=== PATIENT | male | born 1955 | race Caucasian/White ===

== ENCOUNTER 2017-07-31 13:34 | Emergency (ER) | payer MEDICARE ==
--- NOTE | 2017-07-31 14:53 | CR ---
Pelvis right hip There is a fracture of the greater trochanter of the hip. The right-sided pelvic structures are intac t. The femoral neck is intact. Symmetric degenerative joint space loss of the hips is demonstrated. Impression: 1. Fracture of the greater trochanter.
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
[2017-07-31] MEDS: Acetaminophen/oxyCODONE 325-5 MG Tab PO STA (15:05)
== END 2017-07-31 16:05 | disposition home or self-care (01) ==
LOC: JP.ED 13:34
DX: S72.111A Displaced fracture of greater trochanter of right femur, initial encounter for closed fracture (principal); Z88.8 Allergy status to other drugs, medicaments and biological substances; Z87.891 Personal history of nicotine dependence; V98.8XXA Other specified transport accidents, initial encounter
CPT/HCPCS: 73502; 99283; 99284; A9270

== ENCOUNTER 2017-08-24 03:22 | Inpatient (IN) | payer MEDICARE ==
[2017-08-24] MEDS ORDERED: HYDROmorphone 1 MG/ML Syringe IM ONE (03:49)
--- NOTE | 2017-08-24 03:52 | EDM.PDOC ---
ED HPI GENERAL MEDICAL PROBLEM - General Chief Complaint: General Stated Complaint: MEDICAL VIA [place]TH - FALL Time Seen by Provider: 08/24/17 03:44 Source of Information: Reports: Patient, RN Notes Reviewed History Limitations: Reports: No Limitations - History of Present Illness INITIAL COMMENTS - FREE TEXT/NARRATIVE: 61-year-old gentleman presents to the emergency department today following a fall at home, he fell in his bathroom landed predominantly on the left side of his chest and now is experiencing pain does have a history of multiple bone fractures, he states it hurts to take a breath Left Chest Pain Score (Numeric/FACES): 8 - Related Data Allergies Allergy/AdvReac Type Severity Reaction Status Date / Time acetaminophen [From Percocet] Allergy Swelling Verified 08/24/17 03:30 orphenadrine Allergy Swelling Verified 08/24/17 03:29 oxycodone [From Percocet] Allergy Swelling Verified 08/24/17 03:30 propoxyphene Allergy Swelling Verified 08/24/17 03:29 Home Meds: Home Meds Amitriptyline [Elavil] 1 tab PO BEDTIME 07/31/17 [History] Fish Oil/DHA/EPA [Fish Oil 1,200 MG] 1 tab PO DAILY 07/31/17 [History] Gabapentin [Neurontin] 1 tab PO TID 07/31/17 [History] Methadone 3 tab PO TID 07/31/17 [History] Multivitamin [Multivitamins] 1 tab PO DAILY 07/31/17 [History] Past Medical History HEENT History: Reports: Impaired Vision Musculoskeletal History: Reports: Arthritis, Fracture, Neck Pain, Chronic, Other (See Below) Other Musculoskeletal History: degenerative disc disease. bilateral upper extremity radiculopathy.Recent fx l hip. Neurological History: Reports: Other (See Below) Other Neuro History: cervical spondylitic myelopathy. - Infectious Disease History Infectious Disease History: Reports: Chicken Pox - Past Surgical History HEENT Surgical History: Reports: Other (See Below) Other HEENT Surgeries/Procedures: deviated septum Neurological Surgical History: Reports: C-Spine, Discectomy, Other (See Below) Other Neurological Surgeries/Procedures: c-spine fusion, Musculoskeletal Surgical History: Reports: Amputation, Other (See Below) Other Musculoskeletal Surgeries/Procedures:: bilateral thumb surgery, thumb amputation right. Social & Family History - Tobacco Use Smoking Status *Q: Former Smoker Years of Tobacco use: 37 Packs/Tins Daily: 1 Used Tobacco, but Quit: Yes Month/Year Tobacco Last Used: 2005 Second Hand Smoke Exposure: No - Caffeine Use Caffeine Use: Reports: Coffee - Alcohol Use Days Per Week of Alcohol Use: 4 Number of Drinks Per Day: 3 Total Drinks Per Week: 12 - Recreational Drug Use Recreational Drug Use: Yes Recreational Drug Type: Reports: Marijuana/Hashish Recreational Drug Use Frequency: Rarely ED ROS GENERAL - Review of Systems Review Of Systems: See Below Constitutional: Reports: No Symptoms Respiratory: Reports: Shortness of Breath Cardiovascular: Reports: Chest Pain Musculoskeletal: Reports: Back Pain Skin: Reports: No Symptoms ED EXAM, GENERAL - Physical Exam Exam: See Below Exam Limited By: No Limitations General Appearance: Alert, Mild Distress Neck: Normal Inspection, Supple, Non-Tender, Full Range of Motion Respiratory/Chest: No Respiratory Distress, Lungs Clear, Normal Breath Sounds, No Accessory Muscle Use, Other (Tender to palpation along left side posterior aspect of the chest) Cardiovascular: Regular Rate, Rhythm, No Murmur GI/Abdominal: Soft, Non-Tender Extremities: Normal Inspection, No Pedal Edema Course - Vital Signs Last Recorded V/S: Last Vital Signs Temp 97.7 F 08/24/17 05:06 Pulse 116 H 08/24/17 05:06 Resp 14 08/24/17 05:06 BP 135/68 08/24/17 05:06 Pulse Ox 97 08/24/17 05:06 - Orders/Labs/Meds Orders: Active Orders 24 hr Category Date Time Status Chest wo Cont [CT] Stat Exams 08/24/17 03:49 Taken COMPREHENSIVE METABOLIC PN,CMP [CHEM] Stat Lab 08/24/17 05:34 Received Labs: Laboratory Tests 08/24/17 08/24/17 Range/Units 05:27 05:34 WBC 14.3 H (4.5-11.0) K/uL RBC 3.97 L (4.30-5.90) M/uL Hgb 11.4 L (12.0-15.0) g/dL Hct 35.2 L (40.0-54.0) % MCV 89 (80-98) fL MCH 29 (27-31) pg MCHC 32 (32-36) % Plt Count 469 H (150-400) K/uL Neut % (Auto) 84 H (36-66) % Lymph % (Auto) 11 L (24-44) % [place] % (Auto) 5 (2-6) % Eos % (Auto) 0 L (2-4) % Baso % (Auto) 0 (0-1) % Urine Color Yellow Urine Appearance Clear Urine pH 6.0 (4.5-8.0) Ur Specific [place] 1.015 (1.008-1.030) Urine Protein Negative (NEGATIVE) mg/dL Urine Glucose (UA) Normal (NEGATIVE) mg/dL Urine Ketones Negative (NEGATIVE) mg/dL Urine Occult Blood Negative (NEGATIVE) Urine Nitrite Negative (NEGAITVE) Urine Bilirubin Negative (NEGATIVE) Urine Urobilinogen Normal (NORMAL) mg/dL Ur Leukocyte Esterase Negative (NEGATIVE) Urine RBC 0-5 (0-5) Urine WBC 0-5 (0-5) Ur Epithelial Cells Few Amorphous Sediment Not seen Urine Bacteria Few Urine Mucus Not seen Meds: Medications Discontinued Medications Generic Name Dose Route Start Last Admin Trade Name Freq PRN Reason Stop Dose Admin Hydromorphone HCl 1 mg 08/24/17 03:49 Dilaudid IM 08/24/17 03:50 ONETIME ONE Hydromorphone HCl 1 mg 08/24/17 05:02 08/24/17 05:12 Dilaudid IVPUSH 08/24/17 05:03 1 mg ONETIME ONE Administration Departure - Departure Time of Disposition: 06:01 Disposition: Admitted As Inpatient 64 Condition: Fair Clinical Impression: Pneumothorax, left, Hemothorax on left Multiple rib fractures Qualifiers: Encounter type: initial encounter Fracture type: closed Laterality: left Qualified Code(s): S22.42XA - Multiple fractures of ribs, left side, initial encounter for closed fracture - Discharge Information Referrals: PCP,None [Primary Care Provider] - Forms: ED Department Discharge - My Orders Last 24 Hours: My Active Orders 08/24/17 03:49 Chest wo Cont [CT] Stat 08/24/17 05:34 COMPREHENSIVE METABOLIC PN,CMP [CHEM] Stat - Assessment/Plan Last 24 Hours: My Active Orders 08/24/17 03:49 Chest wo Cont [CT] Stat 08/24/17 05:34 COMPREHENSIVE METABOLIC PN,CMP [CHEM] Stat Plan: Assessment Acuity = acute Site and laterality = rib fractures 8 and 9 on the left side with moderate size pneumothorax and small hemothorax Etiology = secondary to trauma Manifestations = pain Location of injury = Home Lab values = WBC elevated at 14.3 consistent leukocytosis, hemoglobin low 11.4 consistent with normochromic anemia, urinalysis unremarkable, CT scan describes the rib fractures and pneumothorax above, CMP is pending Plan Called and discussed case with Dr. Naik he agreed to come and evaluate the patient emergency department plan for surgical intervention and placement of chest tube for pneumothorax This note was dictated using [employer] voice recognition software please call with any questions on syntax or meg.
[2017-08-24] MEDS ORDERED: HYDROmorphone 1 MG/ML Syringe IVPUSH ONE (05:02)
[2017-08-24] MEDS ORDERED: Bupivacaine 0.5%/EPINEPHrine 1:200,000 50 ML MDV ONE (06:59)
[2017-08-24] MEDS ORDERED: Propofol 200 MG/20 ML SDV ONE (07:06)
[2017-08-24] MEDS ORDERED: Midazolam 1 MG/ML 2 ML SDV ONE (07:06)
[2017-08-24] MEDS ORDERED: fentaNYL 100 MCG/2 ML SDV ONE (07:06)
[2017-08-24] MEDS ORDERED: Bupivacaine 0.5% 30 ML SDV ONE (07:27)
[2017-08-24] MEDS ORDERED: cefOXitin 2 GM Vial ONE (07:36)
[2017-08-24] MEDS ORDERED: diphenhydrAMINE 50 MG/ML SDV IVPUSH PRN (07:45)
[2017-08-24] MEDS ORDERED: hydrOXYzine HCl 100 MG/2 ML SDV IM PRN (07:45)
[2017-08-24] MEDS ORDERED: Promethazine 25 MG/ML SDV IM PRN (07:45)
[2017-08-24] MEDS ORDERED: Ondansetron 4 MG/2 ML SDV IVPUSH PRN (07:45)
[2017-08-24] MEDS ORDERED: Bisacodyl 5 MG Tab PO PRN (07:45)
[2017-08-24] MEDS ORDERED: Zolpidem 5 MG Tab PO PRN (07:45)
[2017-08-24] MEDS: Ketorolac 30 MG/ML SDV IVPUSH SCH ×3 (08:26→20:27)
[2017-08-24] MEDS ORDERED: Morphine 2 MG/ML Syringe IVPUSH PRN (08:48)
[2017-08-24] MEDS ORDERED: FISH OIL PO SCH (09:00)
[2017-08-24] MEDS ORDERED: EPA PO SCH (09:00)
[2017-08-24] MEDS ORDERED: DHA PO SCH (09:00)
[2017-08-24] MEDS ORDERED: Non-Formulary Medication 1 Each (Multivitamin [Multivitamins] 1 TAB) PO SCH (09:00)
[2017-08-24] MEDS: Methadone 10 MG Tab PO SCH ×3 (09:42→20:29)
[2017-08-24] MEDS: Gabapentin 300 MG Cap PO SCH ×3 (09:43→20:29)
[2017-08-24] MEDS: Multivitamins with Iron/Calcium/Folic Acid/Minerals Tab PO SCH (09:43)
[2017-08-24] MEDS: Fish Oil/Omega-3 Fatty Acids 1 Gm Cap PO SCH (09:44)
--- NOTE | 2017-08-24 14:56 | OR ---
DATE OF PROCEDURE: 08/24/2017 PROCEDURE PERFORMED: Left chest tube. PREOPERATIVE DIAGNOSIS: Hemo/pneumothorax, left. POSTOPERATIVE DIAGNOSIS: Hemo/pneumothorax, left. COMPLICATION: None. UNDERCOLLAR BASTER: None. ANESTHESIA: MAC/Local. RISKS: The risks, benefits, alternatives, and limitations including, but not limited to infection, bleeding, requirement for reoperation, lung injury, cardiovascular injury, infection, and other risks not listed here were explained to the patient and he wished to proceed. PROCEDURE IN DETAIL: The patient was placed in the right lateral decubitus position. This chest will be placed in standard fashion around the 4th intercostal space, mid-axillary line superior to nipple. The area of the chest was prepped and draped. A proximal 1-cm incision was made after anesthetizing with lidocaine. A blunt type device was used to enter the chest. A pop was felt and air bailey was heard. The finger sweep confirmed the chest tube placement. A 32-Turkish chest tube was introduced and advanced to approximately 10 cm. Condensation was noted in the tube. This was then stitched in x2 with closure of the wound itself. Dressings were applied, which consisted of Vaseline gauze, 4x4s, and heavy foam tape. The chest tube was tightened with air bubbles noted at the termination of the procedure. The patient tolerated the procedure well. Ace Naik MD /[id number]
[2017-08-24] MEDS: Sodium Chloride 0.9% 1,000 ML IV SCH (16:38)
--- NOTE | 2017-08-24 17:02 | CONS ---
DATE OF SERVICE: 08/24/2017 REFERRING PHYSICIAN: CONSULTING PHYSICIAN: Ace Naik MD REASON FOR CONSULTATION: Evaluation of shortness of breath. HISTORY OF PRESENT ILLNESS: A pleasant 61-year-old male who fell and has now shortness of breath. The emergency room physician is requesting evaluation and management of this issue in conjunction with Surgery. PAST SURGICAL HISTORY: Multiple orthopedic surgery especially in his fingers. No previous chest surgery. PAST MEDICAL HISTORY: The patient states he has none, but does note he is on methadone. SOCIAL HISTORY: He presents alone today. He does not report smoking. REVIEW OF SYSTEMS: GENERAL: No reported concerns. CARDIOVASCULAR: No history of myocardial infarction. RESPIRATORY: No previous history of shortness of breath. GASTROINTESTINAL: No contributory symptoms. GENITOURINARY: No contributory symptoms. The remainder of the review of systems reviewed and is negative. PHYSICAL EXAMINATION: VITAL SIGNS: Stable. HEENT: Pupils are equal. GENERAL: The patient is resting comfortably. NECK: Supple. LUNGS: Poor inspiratory effort bilaterally. CARDIOVASCULAR: Regular rhythm and rate. ABDOMEN: Bowel sounds positive. EXTREMITIES: Full range of motion. SKIN: Some bruising noted. No open wound. IMAGING: I did review a CT scan which shows a pneumothorax, left. ASSESSMENT: Pneumothorax. PLAN: The patient will be taken to the operating room for chest tube placement. It is my opinion that it is the best choice for management of this problem. I did discuss risks, benefits, alternatives, limitations including, but not limited to infection, bleeding, requirement for reoperation, requirement for placement of second chest tube, also discussed that physiologically due to his physiological age, the patient might get a respiratory compromise; therefore, he is instructed to postoperatively have very aggressive incentive spirometry and it was explained to him that it is very important he participates in this. In addition, I did discuss with him Anesthesia's plan for nerve blocks in conjunction with our MAC anesthetic. He understands the risks, benefits, alternatives, and limitations of that. However, please refer to their notes for further details. Ace Naik MD /[id number]
[2017-08-24] MEDS: Amitriptyline 25 MG Tab PO SCH (20:27)
[2017-08-25] MEDS: Sodium Chloride 0.9% 1,000 ML IV SCH (00:37)
[2017-08-25] MEDS: Ketorolac 30 MG/ML SDV IVPUSH SCH (02:17)
[2017-08-25] MEDS: Ibuprofen 600 MG Tab PO SCH ×3 (08:09→18:43)
[2017-08-25] MEDS: Methadone 10 MG Tab PO SCH ×3 (08:10→20:59)
[2017-08-25] MEDS: Fish Oil/Omega-3 Fatty Acids 1 Gm Cap PO SCH (08:10)
[2017-08-25] MEDS: Gabapentin 300 MG Cap PO SCH ×3 (08:10→21:00)
[2017-08-25] MEDS: Multivitamins with Iron/Calcium/Folic Acid/Minerals Tab PO SCH (08:10)
--- NOTE | 2017-08-25 12:19 | PN ---
DATE OF SERVICE: 08/25/2017 SUBJECTIVE: The patient is doing well today. Pain is well controlled. No nausea, vomiting, shortness of breath, or chest pain. OBJECTIVE: VITAL SIGNS: Stable. CARDIOVASCULAR: Regular rhythm and rate. RESPIRATORY: Lungs clear to auscultation bilaterally. IMAGING: X-rays show a stable chest without any evidence of pneumothorax. ASSESSMENT: Status post chest tube placement for pneumothorax. PLAN: This is stable. No bubbling. No concern. Therefore, the plan will be continue chest tube in, probably remove on Saturday. Transferred to the floor from ICU. Ace Naik MD /[id number]
[2017-08-25] MEDS: HYDROmorphone 2 MG Tab PO PRN ×2 (19:08→23:55)
[2017-08-25] MEDS: Amitriptyline 25 MG Tab PO SCH (20:59)
[2017-08-25] MEDS: Docusate Sodium 100 MG Cap PO PRN (23:54)
[2017-08-26] MEDS: Ibuprofen 600 MG Tab PO SCH ×4 (01:16→19:36)
[2017-08-26] MEDS: HYDROmorphone 2 MG Tab PO PRN ×4 (04:36→19:36)
--- NOTE | 2017-08-26 08:46 | CR ---
Portable chest Comparison: Chest CT obtained earlier same day. Fine is: There has been interval placement of a left chest tube. There is reexpansion of the left jeff g with nonvisualization of the pneumothorax. The heart and vascular structures are stable. Impression: 1. Resolution of left pneumothorax following chest tube placement.
--- NOTE | 2017-08-26 08:48 | CR ---
Portable chest Comparison: Previous day. The left chest tube appears advanced further into the chest. There is no visualized pneumothorax. The re is a small left pleural effusion. There is mild subcutaneous air along the left chest wall. There has been development of mild right basilar atelectasis. Impression: 1. Diminished lung volumes. Interval development of small pleural effusion. No evidence of pneumothor ax. 2. Right basilar atelectasis.
--- NOTE | 2017-08-26 08:50 | CR ---
Two-view chest Comparison: Previous day. There is no interval change of the left chest tube. There is no visualized pneumothorax. A small left pleural effusion is unchanged. There continues to be basilar atelectasis on the right. The heart and vascular structures are stable. Impression: 1. Left chest tube without visualized pneumothorax.
[2017-08-26] MEDS: Fish Oil/Omega-3 Fatty Acids 1 Gm Cap PO SCH (09:32)
[2017-08-26] MEDS: Multivitamins with Iron/Calcium/Folic Acid/Minerals Tab PO SCH (09:32)
[2017-08-26] MEDS: Gabapentin 300 MG Cap PO SCH ×3 (09:32→21:43)
[2017-08-26] MEDS: Methadone 10 MG Tab PO SCH ×3 (09:53→21:43)
--- NOTE | 2017-08-26 11:01 | PN ---
DATE OF SERVICE: 08/25/2017 SUBJECTIVE: The patient continues to do well. Pain is well controlled. No nausea, vomiting, shortness of breath, or chest pain. OBJECTIVE: VITAL SIGNS: Stable. CARDIOVASCULAR: Regular rhythm and rate. RESPIRATORY: Lungs are clear to auscultation bilaterally except for crackles on the chest tube site which is appropriate for his condition. ASSESSMENT: Status post chest tube placement. PLAN: Continue chest tube at this time. No concerns with respect to bubbling or air leak. Anticipated discharge approximately on Saturday if water seal works. Ace Naik MD /[id number]
--- NOTE | 2017-08-26 11:05 | PN ---
DATE OF SERVICE: 08/26/2017 SUBJECTIVE: The patient continues to do well today. His pain is well-controlled. No nausea, vomiting, shortness of breath, or chest pain. He is tolerating diet. OBJECTIVE: VITAL SIGNS: Stable. CARDIOVASCULAR: Regular rhythm and rate. RESPIRATORY: Improved auscultation bilaterally. ASSESSMENT: Status post chest tube on the left. PLAN: We will continue to increase his activity. We will place him on water seal in the a.m. Aside from that, continue same diet and pain management plan today. Ace Naik MD /[id number]
[2017-08-26] MEDS: Docusate Sodium 100 MG Cap PO PRN (15:22)
[2017-08-26] MEDS: Amitriptyline 25 MG Tab PO SCH (21:43)
[2017-08-27] MEDS: Ibuprofen 600 MG Tab PO SCH ×3 (03:30→17:46)
--- NOTE | 2017-08-27 09:06 | CR ---
Two-view chest Comparison: Previous day. There is a left chest tube unchanged in position. There is a left pleural effusion without change. Th ere is no visualized pneumothorax. There is volume loss and atelectasis in the right lung base. A sma ll right pleural effusion cannot be excluded. The heart and vascular structures are stable. Impression: 1. Left chest tube without evidence of pneumothorax. 2. Small left pleural effusion. There are few scattered air-fluid levels in the left lower hemithorax . 3. Right basilar atelectasis.
[2017-08-27] MEDS: Fish Oil/Omega-3 Fatty Acids 1 Gm Cap PO SCH (09:07)
[2017-08-27] MEDS: Methadone 10 MG Tab PO SCH ×3 (09:07→20:47)
[2017-08-27] MEDS: Multivitamins with Iron/Calcium/Folic Acid/Minerals Tab PO SCH (09:08)
[2017-08-27] MEDS: Gabapentin 300 MG Cap PO SCH ×3 (09:08→20:48)
[2017-08-27] MEDS: HYDROmorphone 2 MG Tab PO PRN ×3 (09:20→21:35)
--- NOTE | 2017-08-27 11:19 | CR ---
Portable chest Comparison: Earlier same day. Left chest tube is unchanged. There is no visualized pneumothorax. There are markedly diminished lung volumes. There is bibasilar atelectasis. There is a small left effusion. Impression: 1. No evidence of pneumothorax with chest tube placed to waterseal.
--- NOTE | 2017-08-27 18:45 | DISCH ---
DATE OF SERVICE: 08/27/2017 DISCHARGE DIAGNOSIS: Pneumothorax, left. PROCEDURES PERFORMED DURING THIS HOSPITALIZATION: Left chest tube placement. SUMMARY OF HOSPITAL COURSE: This is a pleasant 81-year-old male who underwent an uneventful chest tube placement due to a hemopneumothorax. The patient progressed well through his approximately 72 hours of hospitalization. Prior to discharge, his chest tube was removed. A cursory examination of the x-ray showed no evidence of pneumothorax. Official results are pending. Follow up with Surgery in 7-14 days. ACTIVITY: No lifting greater than 30 pounds x30 days. DISCHARGE MEDICATIONS: Please see MAR, but include Dilaudid for pain. SPECIAL INSTRUCTIONS: The patient was instructed to leave the dressing on for 40 hours and remove. Bacitracin and Band-Aid daily. In addition, he was also instructed to present to the emergency room with any evidence of shortness of breath or any other abnormality. The patient understands these risks and wishes to be discharged.
[2017-08-27] MEDS: Amitriptyline 25 MG Tab PO SCH (20:47)
[2017-08-27] MEDS: Docusate Sodium 100 MG Cap PO PRN (20:48)
--- NOTE | 2017-08-28 08:47 | CR ---
Portable chest Comparison: Earlier same day. Findings: There has been interval removal of the left chest tube. There is no pneumothorax seen. A le ft pleural effusion is unchanged. There are left rib fractures again noted. There is basilar atelecta sis on the right. Markedly diminished lung volumes are demonstrated. Impression: 1. Noncomplicated chest tube removal.
--- NOTE | 2017-08-28 09:28 | PN ---
DATE OF SERVICE: 08/27/2017 SUBJECTIVE: The patient is doing very well today. Pain is well controlled. No nausea, vomiting, shortness of breath, or chest pain. OBJECTIVE: VITAL SIGNS: Stable. CARDIOVASCULAR: Regular rhythm and rate. RESPIRATORY: Lungs clear to auscultation bilaterally. The chest tube is tidaling without difficulty. ASSESSMENT: Status post pneumothorax/chest tube. PLAN: We will remove his chest tube today. The patient was placed in the supine position. The stitch was removed. The patient suspended respirations and Xeroform/4x4/gauze dressings were applied, as the patient firmly suspended respirations, and chest tube was removed. The patient tolerated the procedure well. The patient will be discharged pending x-ray. Please see discharge instructions for further details. Ace Naik MD /[id number]
== END 2017-08-27 22:15 | disposition home or self-care (01) | DRG 200 ==
LOC: JP.ED 03:22 → JP.SDS 06:21 → JP.ICU 07:45 → JP.MS 08-25 13:22
PROVIDERS: ADMIT Surgery; ATTEND Surgery
PROC: 0W9B30Z Drainage of Left Pleural Cavity with Drainage Device, Percutaneous Approach (ICD-10-PCS; principal; 2017-08-24)
PROC: 0WPBX0Z Removal of Drainage Device from Left Pleural Cavity, External Approach (ICD-10-PCS; 2017-08-27)
DX: S27.2XXA Traumatic hemopneumothorax, initial encounter (principal); S22.42XA Multiple fractures of ribs, left side, initial encounter for closed fracture; Z87.891 Personal history of nicotine dependence; W19.XXXA Unspecified fall, initial encounter; Y92.002 Bathroom of unspecified non-institutional (private) residence as the place of occurrence of the external cause; R06.02 Shortness of breath; R07.89 Other chest pain; Z98.1 Arthrodesis status; M19.90 Unspecified osteoarthritis, unspecified site; H54.7 Unspecified visual loss; M54.2 Cervicalgia; G89.29 Other chronic pain; Z88.6 Allergy status to analgesic agent; Z88.5 Allergy status to narcotic agent; Z88.8 Allergy status to other drugs, medicaments and biological substances
CPT/HCPCS: 32556; 36415; 71250; 80053; 81001; 85025; 96374; 99285; J0694; J1170; J2250; J2704; J3010; 71045; 71045-26; 71046; 71046-26; 80048; 85027; 94762; 97162-GP; 97530-GP; 99284; A9270-GY; J1885; J7040

== ENCOUNTER 2017-09-21 19:04 | Emergency (ER) | payer MEDICAID, MEDICARE, OTHER ==
--- NOTE | 2017-09-21 21:38 | EDM.PDOC ---
ED HPI GENERAL MEDICAL PROBLEM - General Chief Complaint: Respiratory Problem Stated Complaint: SOB Time Seen by Provider: 09/21/17 20:56 Source of Information: Reports: Patient History Limitations: Reports: Other (Difficult to understand this patient's speech) - History of Present Illness INITIAL COMMENTS - FREE TEXT/NARRATIVE: This patient was hospitalized approximately a month ago for a collapsed lung after a fall. This required a chest tube. Review of the x-ray shows what appears to be a large pneumothorax on the right. The patient said that he occasionally gets a little bit of pain in the ribs of the left side of his chest. He hasn't fallen anymore and he's not short of breath today occasionally he feels just a little bit short of breath. For some reason he got worried tonight that he might have another collapsed lung. Generalized Pain Score (Numeric/FACES): 5 - Related Data Allergies Allergy/AdvReac Type Severity Reaction Status Date / Time acetaminophen [From Percocet] Allergy Swelling Verified 09/21/17 20:13 orphenadrine Allergy Swelling Verified 09/21/17 20:13 oxycodone [From Percocet] Allergy Swelling Verified 09/21/17 20:13 propoxyphene Allergy Swelling Verified 09/21/17 20:13 Home Meds: Home Meds Amitriptyline [Elavil] 1 tab PO BEDTIME 07/31/17 [History] Fish Oil/DHA/EPA [Fish Oil 1,200 MG] 1 tab PO DAILY 07/31/17 [History] Gabapentin [Neurontin] 300 mg PO TID 07/31/17 [History] Methadone 30 mg PO TID 07/31/17 [History] Multivitamin [Multivitamins] 1 tab PO DAILY 07/31/17 [History] Past Medical History HEENT History: Reports: Impaired Vision Respiratory History: Reports: Other (See Below) Other Respiratory History: Recent chest tube. [facility] 08/27/17 Musculoskeletal History: Reports: Arthritis, Back Pain, Chronic, Fracture, Neck Pain, Chronic, Other (See Below) Other Musculoskeletal History: degenerative disc disease. bilateral upper extremity radiculopathy.Recent fx l hip. scoliosis, kyphosis Neurological History: Reports: Other (See Below) Other Neuro History: cervical spondylitic myelopathy. - Infectious Disease History Infectious Disease History: Reports: Chicken Pox - Past Surgical History HEENT Surgical History: Reports: Other (See Below) Other HEENT Surgeries/Procedures: deviated septum Neurological Surgical History: Reports: C-Spine, Discectomy, Other (See Below) Other Neurological Surgeries/Procedures: c-spine fusion, Musculoskeletal Surgical History: Reports: Amputation, Other (See Below) Other Musculoskeletal Surgeries/Procedures:: bilateral thumb surgery, thumb amputation right. Social & Family History - Family History Family Medical History: Noncontributory - Tobacco Use Smoking Status *Q: Former Smoker Years of Tobacco use: 12 Packs/Tins Daily: 1 Used Tobacco, but Quit: Yes Month/Year Tobacco Last Used: 2005 Second Hand Smoke Exposure: No - Caffeine Use Caffeine Use: Reports: Coffee - Alcohol Use Days Per Week of Alcohol Use: 4 Number of Drinks Per Day: 3 Total Drinks Per Week: 12 - Recreational Drug Use Recreational Drug Use: Yes Recreational Drug Type: Reports: Marijuana/Hashish Recreational Drug Use Frequency: Rarely ED ROS GENERAL - Review of Systems Review Of Systems: ROS reveals no pertinent complaints other than HPI. ED EXAM, GENERAL - Physical Exam Exam: See Below Exam Limited By: No Limitations General Appearance: Alert, Other (Is very chronically ill sort of stooped over and definitely has scoliosis) Eye Exam: Bilateral Eye: Normal Inspection Respiratory/Chest: Lungs Clear (He seems to have good air movement to both lungs.) Cardiovascular: Regular Rate, Rhythm Course - Vital Signs Last Recorded V/S: Last Vital Signs Temp 35.7 C 09/21/17 20:22 Pulse 83 09/21/17 20:22 Resp 20 09/21/17 20:22 BP 141/71 H 09/21/17 20:22 Pulse Ox 95 09/21/17 20:22 - Orders/Labs/Meds Orders: Active Orders 24 hr Category Date Time Status Chest 1V Frontal [CR] Urgent Exams 09/21/17 20:56 Taken - Radiology Interpretation Free Text/Narrative:: Chest x-ray showed no evidence of pneumothorax Departure - Departure Time of Disposition: 21:36 Disposition: Home, Self-Care 01 Condition: Fair Clinical Impression: Shortness of breath, Pedal edema - Discharge Information Instructions: Edema Referrals: Derick Medel MD [Primary Care Provider] - Forms: ED Department Discharge Additional Instructions: Use the furosemide or Lasix 40 mg start off taking half a tablet in the morning. This will make you urinate more. This should get rid of the leg swelling. If you do this too much it'll make you dehydrated so use just the smallest amount that will do the trick. Don't use it for more than one week. Plan see your doctor in 2 or 3 days - My Orders Last 24 Hours: My Active Orders 09/21/17 20:56 Chest 1V Frontal [CR] Urgent - Assessment/Plan Last 24 Hours: My Active Orders 09/21/17 20:56 Chest 1V Frontal [CR] Urgent
--- NOTE | 2017-09-23 09:47 | CR ---
Chest 1V Frontal HISTORY: Pain COMPARISON: 08/27/2017. FINDINGS: Prior cervical fusion. Cardiac size and pulmonary vessels appear normal. Resolved basilar i nfiltrates and effusions. No new infiltrates.
== END 2017-09-21 21:47 | disposition home or self-care (01) ==
LOC: JP.ED 19:04
DX: R06.02 Shortness of breath (principal); R60.0 Localized edema; Z88.8 Allergy status to other drugs, medicaments and biological substances; Z88.5 Allergy status to narcotic agent; Z79.899 Other long term (current) drug therapy; Z87.891 Personal history of nicotine dependence; Z97.8 Presence of other specified devices; Z88.6 Allergy status to analgesic agent
CPT/HCPCS: 71045; 71045-26; 99285

== ENCOUNTER 2018-08-19 06:36 | Observation (INO) | payer MEDICARE ==
[2018-08-19] MEDS ORDERED: Bupivacaine 0.5% 50 ML MDV ONE (06:43)
[2018-08-19] MEDS ORDERED: Lidocaine 1% with EPINEPHrine 1:100,000 50 ML MDV ONE (06:43)
[2018-08-19] MEDS: Dextrose 5%-Lactated Ringers 1,000 ML IV SCH ×2 (07:17→15:01)
[2018-08-19] MEDS ORDERED: Gabapentin 300 MG Cap PO ONE (07:30)
[2018-08-19] MEDS ORDERED: ceFAZolin 2 GM in Premix Bag 1 BAG IV ONE (07:30)
[2018-08-19] MEDS ORDERED: Acetaminophen 500 MG Tab PO ONE (07:30)
[2018-08-19] MEDS ORDERED: Propofol 200 MG/20 ML SDV ONE ×2 (08:33→09:08)
[2018-08-19] MEDS ORDERED: Midazolam 1 MG/ML 2 ML SDV ONE (08:33)
[2018-08-19] MEDS ORDERED: fentaNYL 100 MCG/2 ML SDV ONE (08:33)
[2018-08-19] MEDS ORDERED: Ondansetron 4 MG/2 ML SDV ONE (09:08)
[2018-08-19] MEDS ORDERED: Succinylcholine 200 MG/10 ML MDV ONE (09:08)
[2018-08-19] MEDS ORDERED: Dexamethasone 4 MG/ML SDV ONE (09:08)
[2018-08-19] MEDS ORDERED: Rocuronium 50 MG/5 ML Vial ONE (09:08)
[2018-08-19] MEDS ORDERED: fentaNYL 250 MCG/5 ML SDV ONE (09:08)
[2018-08-19] MEDS ORDERED: Ondansetron 4 MG/2 ML SDV IVPUSH PRN (12:53)
[2018-08-19] MEDS: Furosemide 40 MG Tab (PTOM) PO SCH (13:34)
[2018-08-19] MEDS: Gabapentin 300 MG Cap (PTOM) PO SCH ×2 (13:34→21:34)
[2018-08-19] MEDS: Methadone 10 MG Tab PO PRN ×2 (14:47→23:55)
[2018-08-19] MEDS: ceFAZolin 2 GM in Premix Bag 1 BAG IV SCH (17:21)
[2018-08-19] MEDS: HYDROmorphone 2 MG Tab PO PRN (18:23)
[2018-08-19] MEDS: AMITRIPTYLINE 25 MG PO SCH (21:34)
[2018-08-20] MEDS: HYDROmorphone 2 MG Tab PO PRN (00:57)
[2018-08-20] MEDS: ceFAZolin 2 GM in Premix Bag 1 BAG IV SCH ×2 (00:58→08:15)
[2018-08-20] MEDS: Dextrose 5%-Lactated Ringers 1,000 ML IV SCH (02:06)
--- NOTE | 2018-08-20 07:52 | PCM.PN ---
- General Info Date of Service: 08/20/18 Admission Dx/Problem (Free Text): Left Subcutaneous mastectomy Subjective Update: Aditya is doing well this am. He reports moderate pain to the incision site. Reports he has been on Methadone for "many years". He is tolerating oral intake with good urine output. Pt has been having additional falls at home recently. Functional Status: Reports: Tolerating Diet, Ambulating, Urinating, Incentive Spirometry - Review of Systems General: Reports: No Symptoms HEENT: Reports: No Symptoms Pulmonary: Reports: No Symptoms Cardiovascular: Reports: No Symptoms Gastrointestinal: Reports: No Symptoms Genitourinary: Reports: No Symptoms Musculoskeletal: Reports: Other (Left breast pain) Skin: Reports: No Symptoms Neurological: Reports: No Symptoms Psychiatric: Reports: No Symptoms - Patient Data Vitals - Most Recent: Last Vital Signs Temp 35.3 C 08/20/18 07:27 Pulse 70 08/20/18 07:27 Resp 16 08/20/18 07:27 BP 137/92 H 08/20/18 07:27 Pulse Ox 94 L 08/20/18 07:27 Weight - Most Recent: 58.967 kg I&O - Last 24 Hours: Intake & Output 08/19/18 08/20/18 08/20/18 22:59 06:59 14:59 Intake Total 1500 50 Output Total 1500 Balance 0 50 Lab Results Last 24 Hours: Laboratory Results - last 24 hr 08/19/18 Range/Units 07:28 Sodium 139 L (140-148) mmol/L Potassium 3.6 (3.6-5.2) mmol/L Chloride 101 (100-108) mmol/L Carbon Dioxide 29 (21-32) mmol/L Anion Gap 12.6 (5.0-14.0) mmol/L BUN 10 (7-18) mg/dL Creatinine 0.7 L (0.8-1.3) mg/dL Est Cr Clr Drug Dosing 88.92 mL/min Estimated GFR (MDRD) > 60 (>60) Glucose 96 (74-106) mg/dL Calcium 8.8 (8.5-10.1) mg/dL Phosphorus 4.3 (2.5-4.9) mg/dL Magnesium 1.9 (1.8-2.4) mg/dL Total Bilirubin 0.2 (0.2-1.0) mg/dL AST 26 (15-37) U/L ALT 25 (12-78) U/L Alkaline Phosphatase 118 H (46-116) U/L Total Protein 7.0 (6.4-8.2) g/dL Albumin 3.6 (3.4-5.0) g/dL Globulin 3.4 (2.3-3.5) g/dL Albumin/Globulin Ratio 1.1 L (1.2-2.2) Med Orders - Current: Current Medications Amitriptyline HCl (Elavil) 25 mg PO BEDTIME [facility] Last Admin: 08/19/18 21:34 Dose: 25 mg Furosemide (Lasix) 40 mg PO DAILY [facility] Last Admin: 08/19/18 13:34 Dose: 40 mg Gabapentin (Neurontin) 300 mg PO TID [facility] Last Admin: 08/19/18 21:34 Dose: 300 mg Hydromorphone HCl (Dilaudid) 2 mg PO Q3H PRN PRN Reason: PAIN Last Admin: 08/20/18 00:57 Dose: 2 mg Dextrose/Lactated Ringer's (Dextrose 5%-Lactated Ringers) 1,000 mls @ 100 mls/ hr IV ASDIRECTED [facility] Last Admin: 08/20/18 02:06 Dose: 100 mls/hr Cefazolin Sodium/Dextrose 2 gm (/ Premix) 50 mls @ 100 mls/hr IV Q8H [facility] Stop: 08/20/18 09:29 Last Admin: 08/20/18 00:58 Dose: 100 mls/hr Methadone HCl (Methadone) 30 mg PO Q8H PRN PRN Reason: PAIN Last Admin: 08/19/18 23:55 Dose: 30 mg Ondansetron HCl (Zofran) 4 mg IVPUSH Q4H PRN PRN Reason: Nausea Senna/Docusate Sodium (Senna Plus) 4 tab PO DAILY [facility] Discontinued Medications Acetaminophen (Tylenol Extra Strength) 1,000 mg PO ONETIME ONE Stop: 08/19/18 07:31 Last Admin: 08/19/18 07:16 Dose: 1,000 mg Bupivacaine HCl (Marcaine 0.5%) Confirm Administered Dose 50 ml .ROUTE .STK-MED ONE Stop: 08/19/18 06:44 Last Admin: 08/19/18 10:40 Dose: 8 ml Dexamethasone (Dexamethasone) Confirm Administered Dose 4 mg .ROUTE .STK-MED ONE Stop: 08/19/18 09:09 Fentanyl (Sublimaze) Confirm Administered Dose 100 mcg .ROUTE .STK-MED ONE Stop: 08/19/18 08:34 Fentanyl (Sublimaze) Confirm Administered Dose 250 mcg .ROUTE .STK-MED ONE Stop: 08/19/18 09:09 Gabapentin (Neurontin) 300 mg PO ONETIME ONE Stop: 08/19/18 07:31 Last Admin: 08/19/18 07:16 Dose: 300 mg Cefazolin Sodium/Dextrose 2 gm (/ Premix) 50 mls @ 100 mls/hr IV ONETIME ONE Stop: 08/19/18 07:59 Last Admin: 08/19/18 10:04 Dose: 100 mls/hr Lidocaine/Epinephrine (Xylocaine 1% With Epinephrine 1:100,000) Confirm Administered Dose 50 ml .ROUTE .STK-MED ONE Stop: 08/19/18 06:44 Midazolam HCl (Versed 1 Mg/Ml) Confirm Administered Dose 2 mg .ROUTE .STK-MED ONE Stop: 08/19/18 08:34 Ondansetron HCl (Zofran) Confirm Administered Dose 4 mg .ROUTE .STK-MED ONE Stop: 08/19/18 09:09 Propofol (Diprivan 20 Ml) Confirm Administered Dose 200 mg .ROUTE .STK-MED ONE Stop: 08/19/18 08:34 Propofol (Diprivan 20 Ml) Confirm Administered Dose 200 mg .ROUTE .STK-MED ONE Stop: 08/19/18 09:09 Rocuronium [place] (Zemuron) Confirm Administered Dose 50 mg .ROUTE .STK-MED ONE Stop: 08/19/18 09:09 Succinylcholine Chloride (Quelicin) Confirm Administered Dose 200 mg .ROUTE .STK -MED ONE Stop: 08/19/18 09:09 - Exam General: Alert, Oriented HEENT: Pupils Equal, Pupils Reactive, EOMI, Mucous Membr. Moist/[place] Neck: Supple Lungs: Clear to Auscultation, Normal Respiratory Effort Cardiovascular: Regular Rate, Regular Rhythm GI/Abdominal Exam: Normal Bowel Sounds, Soft, Non-Tender Extremities: Normal Inspection, Normal Range of Motion, Non-Tender, No Pedal Edema, Normal Capillary Refill Skin: Warm, Dry, Intact Wound/Incisions: Healing Well Neurological: No New Focal Deficit Psy/Mental Status: Alert - Problem List & Annotations (1) S/P left mastectomy SNOMED Code(s): 181037731, 636542808 Code(s): Z90.12 - ACQUIRED ABSENCE OF LEFT BREAST AND NIPPLE Status: Acute Current Visit: Yes Annotation/Comment:: Left subcutaneous (2) Chronic pain disorder SNOMED Code(s): 469456134 Code(s): G89.4 - CHRONIC PAIN SYNDROME Status: Chronic Current Visit: No (3) Opioid use agreement exists SNOMED Code(s): 186644764, 631729908 Code(s): Z02.89 - ENCOUNTER FOR OTHER ADMINISTRATIVE EXAMINATIONS Status: Chronic Current Visit: No - Problem List Review Problem List Initiated/Reviewed/Updated: Yes - Plan Plan:: 1. S/P left subcutaneous left mastectomy. Due to pt's increased falls at home, will keep him inpatient one for day due to weakness after anesthesia. 2. Chronic Pain disorder. Pt on Methadone and medical marijuana at home. Continue Methadone and start scheduled ibuprofen and tylenol for breakthrough pain. 3. Opioid use agreement exists.
[2018-08-20] MEDS ORDERED: Ondansetron 4 MG Tab.DIS PO PRN (08:01)
[2018-08-20] MEDS: Ibuprofen 600 MG Tab PO SCH ×3 (08:15→20:42)
[2018-08-20] MEDS: Furosemide 40 MG Tab (PTOM) PO SCH (08:17)
[2018-08-20] MEDS: Gabapentin 300 MG Cap (PTOM) PO SCH ×2 (08:18→14:29)
[2018-08-20] MEDS: Methadone 10 MG Tab PO PRN ×2 (08:32→16:12)
[2018-08-21] MEDS: Methadone 10 MG Tab PO PRN ×2 (00:23→08:28)
[2018-08-21] MEDS: AMITRIPTYLINE 25 MG PO SCH (00:23)
[2018-08-21] MEDS: Gabapentin 300 MG Cap (PTOM) PO SCH ×2 (00:24→08:27)
[2018-08-21] MEDS: Ibuprofen 600 MG Tab PO SCH ×2 (02:28→07:39)
--- NOTE | 2018-08-21 08:04 | DISCH ---
ADMISSION DIAGNOSES: 1. Left gynecomastia. 2. Chronic pain disorder. 3. Opioid use, agreement excess. DISCHARGE DIAGNOSES: Left subcutaneous mastectomy for left painful gynecomastia. Date of surgery: 08/19/2018. Surgeon: Mitchell Whitney. HISTORY: Aditya Rivera is a 62-year-old male with left painful gynecomastia. After preoperative evaluation and discussion of possible risks and possible complications, he wished to proceed with surgical procedure. HOSPITAL COURSE: Aditya had his surgery on 03/21/2019. He had no operative complications. On postoperative day #1, he was changed to oral pain medication of ibuprofen and Tylenol. He does take scheduled methadone. His pain was well managed. Vital signs were stable. Activity good. He was able to be discharged to home on postoperative day #2. PHYSICAL EXAMINATION: GENERAL: Aditya Rivera is a 62-year-old male. VITAL SIGNS: Height is 5 feet 8.11 inches, weight is 130 pounds, BMI is 19.7. TPR is 96.6, 68, 18, blood pressure is 143/82. HEENT: Negative. NECK: Supple. HEART: Regular rate and rhythm. LUNGS: Clear. BREASTS: Left breast incision, dressing was removed by Mitchell Whitney MD. There is minimal postoperative swelling. Steri-Strips are on. ABDOMEN: Negative. EXTREMITIES: Without peripheral edema. DISPOSITION: Discharged to home. CONDITION: Stable and improving. FOLLOWUP: Followup appointment with Mitchell Whitney MD., on 08/27/2018 at 9:15 a.m. HOME MEDICATIONS: He is to resume his home medications of: 1. Elavil 25 mg oral at bedtime. 2. Fish oil one tablet oral daily. 3. Lasix 40 mg oral daily p.r.n. swelling. 4. Neurontin 300 mg 3 times a day. 5. Methadone 20 to 30 mg every 8 hours p.r.n. pain. 6. Multivitamin one daily. 7. MiraLax 1 packet oral daily. 8. Senna S 2 to 4 tablets oral daily p.r.n. constipation. 9. He is to take Tylenol and ibuprofen p.r.n. for pain. DIET: Usual diet as tolerated. Drink 8 to 10 glasses per day. ACTIVITY: As tolerated. No lifting over 10 pounds for 2 weeks. Driving: Do not drive for 1 week. Shower/bathing: May shower. Keep incision site clean and dry. DISCHARGE INSTRUCTIONS: Notify provider if any fever, increased pain, swelling or redness, or drainage from incision. SPECIAL INSTRUCTIONS: Use incentive spirometer 10 times every hour while awake.
[2018-08-21] MEDS: Furosemide 40 MG Tab (PTOM) PO SCH (08:27)
--- NOTE | 2018-08-22 11:18 | OR ---
DATE OF PROCEDURE: 08/19/2018 PREOPERATIVE DIAGNOSIS: Painful left gynecomastia. POSTOPERATIVE DIAGNOSIS: Painful left gynecomastia. OPERATIVE PROCEDURE: Left subcutaneous mastectomy for gynecomastia ([id number]). ANESTHESIA: General. SURGEON: Mitchell Whitney MD BENEFITS REPRESENTATIVE: PEMA Montesinos. INDICATIONS FOR PROCEDURE: This is a 62-year-old presenting with clinically evident gynecomastia involving the left breast. The right breast is not significantly involved. The plan is to do a left subcutaneous mastectomy. Potential risks including bleeding, infection, cosmetic deformity, and remote possibility that there might be something in the way of malignancy involved were all gone over, and the patient wishes to proceed. DETAILS OF PROCEDURE: The patient was taken to the operating room and placed in a supine position. After general endotracheal anesthesia was induced, the left breast and surrounding areas were prepped and draped. A curvilinear incision on the lower half of the areolar border on the left breast was made and carried down through the skin and subcutaneous tissue. The plane between the nipple and the underlying breast tissue was then established. A small ching in the skin just above the nipple was encountered. This area was somewhat adherent, but otherwise the disk of breast tissue was excised down to the level of the pectoralis fascia sequentially. A saucer-shaped disk of tissue was then delivered from the field, which was grossly consistent with gynecomastia with no focal hardened areas. The area of dissection was inspected and minor bleeding points were cauterized and incision closed with some 3-0 and 4-0 Vicryl stitch deep and then a 5-0 Vicryl subcuticular stitch. Pressure dressing was applied. The patient was taken to the recovery room in satisfactory condition. Mitchell Whitney MD /[id number]
== END 2018-08-21 10:15 | disposition home or self-care (01) ==
LOC: JP.SDS 06:36 → JP.MS 10:50 → JP.SDS 08-20 07:17 → JP.MS 08-20 07:18
PROVIDERS: ADMIT Surgery; ATTEND Surgery
DX: N62 Hypertrophy of breast (principal); G89.29 Other chronic pain; F11.20 Opioid dependence, uncomplicated; Z87.891 Personal history of nicotine dependence; Z79.899 Other long term (current) drug therapy
CPT/HCPCS: 19304; 36415; 80053; 83735; 84100; 85027; 94762; A9270; J0330; J0690; J1100; J2405; J2704; J3010; J3490; J7042; 88305; 96361; 96365; 96375; 96376; G0378; J2250

== ENCOUNTER 2019-01-30 07:42 | Inpatient (IN) | payer MEDICARE ==
[~2019-01-30 07:42] MED LIST: Bupivacaine 0.5% 50 ML MDV ONE; Bupivacaine 0.5%/EPINEPHrine 1:200,000 50 ML MDV ONE; Lidocaine 1% with EPINEPHrine 1:100,000 50 ML MDV ONE
[2019-01-30] MEDS ORDERED: Ondansetron 4 MG/2 ML SDV ONE (07:53)
[2019-01-30] MEDS ORDERED: Rocuronium 50 MG/5 ML Vial ONE (07:53)
[2019-01-30] MEDS ORDERED: Glycopyrrolate 0.2 MG/ML 5 ML MDV ONE (07:53)
[2019-01-30] MEDS ORDERED: fentaNYL 250 MCG/5 ML SDV ONE (07:53)
[2019-01-30] MEDS ORDERED: Dexamethasone 4 MG/ML SDV ONE (07:53)
[2019-01-30] MEDS ORDERED: Propofol 200 MG/20 ML SDV ONE (07:53)
[2019-01-30] MEDS ORDERED: Neostigmine Methylsulfate 1 MG/ML 5 ML Syringe ONE (07:53)
[2019-01-30] MEDS ORDERED: Gabapentin 300 MG Cap PO ONE ×2 (08:15→22:30)
[2019-01-30] MEDS: Dextrose 5%-Lactated Ringers 1,000 ML IV SCH (08:30)
[2019-01-30] MEDS ORDERED: ceFAZolin 2 GM in Premix Bag 1 BAG IV ONE (10:00)
[2019-01-30] MEDS ORDERED: Ondansetron 4 MG/2 ML SDV IVPUSH PRN (11:54)
[2019-01-30] MEDS ORDERED: Cyclobenzaprine 10 MG Tab PO PRN (11:57)
[2019-01-30] MEDS: traMADol 50 MG Tab PO PRN ×3 (12:20→21:43)
[2019-01-30] MEDS: Gabapentin 300 MG Cap PO SCH ×2 (13:24→21:45)
[2019-01-30] MEDS: ceFAZolin 2 GM in Premix Bag 1 BAG IV SCH ×2 (17:24→23:37)
[2019-01-30] MEDS: Amitriptyline 25 MG Tab PO SCH (21:44)
[2019-01-30] MEDS: DULoxetine 20 MG Cap PO SCH ×2 (21:45→21:49)
[2019-01-31] MEDS: Dextrose 5%-Lactated Ringers 1,000 ML IV SCH (02:18)
[2019-01-31] MEDS: traMADol 50 MG Tab PO PRN ×5 (04:36→22:33)
[2019-01-31] MEDS: ceFAZolin 2 GM in Premix Bag 1 BAG IV SCH (07:33)
[2019-01-31] MEDS ORDERED: Polyethylene Glycol 3350 Powder 17 GM Packet PO PRN (07:34)
[2019-01-31] MEDS ORDERED: Furosemide 40 MG Tab PO PRN (07:34)
[2019-01-31] MEDS: Gabapentin 300 MG Cap PO SCH ×2 (08:38→13:08)
[2019-01-31] MEDS: Furosemide 20 MG Tab PO SCH (08:38)
[2019-01-31] MEDS ORDERED: Sodium Chloride 0.9% 10 ML Syringe IV PRN (09:37)
[2019-01-31] MEDS: Ibuprofen 600 MG Tab PO SCH ×3 (10:20→21:19)
[2019-01-31] MEDS: Multivitamins with Iron/Calcium/Folic Acid/Minerals Tab PO SCH (10:20)
[2019-01-31] MEDS: Fish Oil/Omega-3 Fatty Acids 1 Gm Cap PO SCH (10:20)
[2019-01-31] MEDS ORDERED: Amitriptyline 25 MG Tab PO SCH (21:00)
[2019-01-31] MEDS: Gabapentin 400 MG Cap PO SCH (21:18)
[2019-01-31] MEDS: Amitriptyline 25 MG Tab PO SCH (21:19)
[2019-01-31] MEDS ORDERED: Gabapentin 300 MG Cap PO ONE (22:08)
[2019-02-01] MEDS: traMADol 50 MG Tab PO PRN ×4 (03:10→20:47)
[2019-02-01] MEDS: Ibuprofen 600 MG Tab PO SCH ×4 (03:14→22:20)
[2019-02-01] MEDS: Gabapentin 300 MG Cap PO SCH ×2 (09:19→15:05)
[2019-02-01] MEDS: Furosemide 20 MG Tab PO SCH (09:19)
[2019-02-01] MEDS: Multivitamins with Iron/Calcium/Folic Acid/Minerals Tab PO SCH (09:19)
[2019-02-01] MEDS: Fish Oil/Omega-3 Fatty Acids 1 Gm Cap PO SCH (09:20)
[2019-02-01] MEDS: Gabapentin 400 MG Cap PO SCH (20:47)
[2019-02-01] MEDS: Amitriptyline 25 MG Tab PO SCH (20:48)
[2019-02-02] MEDS: traMADol 50 MG Tab PO PRN (03:38)
[2019-02-02] MEDS: Ibuprofen 600 MG Tab PO SCH (03:39)
--- NOTE | 2019-02-02 10:21 | DISCH ---
ADMISSION DIAGNOSES: 1. Mass, right breast. 2. Insomnia. 3. Diverticulosis. 4. spondylogenic cervical. 5. Chronic pain disorder. 6. Drug dependence. DISCHARGE DIAGNOSIS: Right subcutaneous mastectomy for painful right gynecomastia. Date of surgery: 01/30/2019. Surgeon: Mitchell Whitney MD. HISTORY: Aditya Rivera is a 63-year-old male with a painful mass in right breast. After preoperative evaluation and discussion of possible risks and possible complications, he wished to proceed with surgical procedure. HOSPITAL COURSE: Aditya had his surgery on 01/30/2019. He had no operative complications. On postoperative day #1, his diet was restarted, his home medications were restarted, and he was started on his usual dose of tramadol 50 mg. on postoperative day #2, his vital signs were stable. His activity was good. On postoperative day #3, he was able to be discharged to home. PHYSICAL EXAMINATION: GENERAL: Aditya Rivera is a 63-year-old male. VITAL SIGNS: Height is 5 feet 8 inches, weight is 137 pounds. TPR is 95, 82, 16, blood pressure 110/68. HEENT: Negative. NECK: Supple. HEART: Regular rate and rhythm. LUNGS: Clear. BREASTS: Right breast incision, Steri-Strips intact. Dressing was removed yesterday. There is no seroma or hematoma palpated. EXTREMITIES: Without peripheral edema. DISPOSITION: Discharged to home. CONDITION: Stable and improving. FOLLOWUP APPOINTMENT: Mitchell Whitney MD, on 02/11/2019 at 1 p.m. HOME MEDICATIONS: Tramadol 50 mg q.4 hours p.r.n. pain, #40. He is to resume his home medication of amitriptyline 25 mg at bedtime, fish oil 1 tablet daily, furosemide 10 mg oral p.r.n. fluid retention, gabapentin 300 mg twice daily and gabapentin 1200 mg at bedtime, Motrin 600 mg every 6 hours, multivitamin daily, MiraLax 1 packet oral daily p.r.n. constipation, Senokot S two to four tablets oral daily p.r.n. constipation. DIET: Usual diet as tolerated. Drink 8 to 10 glasses of water a day. ACTIVITY: No lifting greater than 10 pounds for 6 weeks. Driving after discharge: Do not drive for 1 week and while on pain medication. Shower/bathing: May shower. DISCHARGE INSTRUCTIONS: Notify provider if any fever, increased pain, swelling, redness, drainage. Wound incision care, keep site clean and dry. Use incentive spirometer 10 times every hour while awake.
--- NOTE | 2019-02-04 11:43 | PN ---
DATE OF SERVICE: 01/31/2019 The patient has been afebrile with stable vital signs. He is still having quite a bit of immobility which is chronic for him. He lives at home alone mostly in the wheelchair, and given this immobility and some continued pain, we will need to keep him at least one additional day to help re-establish adequate mobility, and he will be cleared for converting to inpatient status today. Otherwise, appears to be getting sorted out. Saline lock the IV to help facilitate mobility as well, and add Ensure and Boost t.i.d. between meals. The patient is obviously marginal in terms of his nutritional status. Mitchell Whitney MD /[id number]
--- NOTE | 2019-02-04 12:10 | PN ---
DATE OF SERVICE: 02/01/2019 The patient is still little bit unstable, but regardless as far as discharge goes, he does not have any transportation available today. We will continue to work on the rehab today. Incision was inspected and the site is clean with no hematoma. He will likely be able to be discharged home tomorrow. Mitchell Whitney MD /[id number]
--- NOTE | 2019-02-04 14:46 | OR ---
DATE OF PROCEDURE: 01/30/2019 SURGEON: Mitchell Whitney MD PREOPERATIVE DIAGNOSIS: Painful right gynecomastia. POSTOPERATIVE DIAGNOSIS: Painful right gynecomastia. OPERATIVE PROCEDURE: Right subcutaneous mastectomy. ANESTHESIA: General. INDICATION FOR PROCEDURE: This is a 63-year-old previously status post left subcutaneous mastectomy with painful gynecomastia, now presenting with increasing pain and nodularity in his right breast, and the plan is to proceed with a subcutaneous mastectomy as well. Potential risks including bleeding, infection, cosmetic deformity and such were reviewed, and the patient wishes to proceed. DETAILS OF PROCEDURE: The patient was taken to the operating room and after general endotracheal was induced, the right breast and surrounding chest wall prepped and draped. A curved incision on the under half of the nipple/areolar border was then made and carried down through the skin and subcutaneous tissue. Initially, the plane between the nipple and the adjacent skin was then divided and then the dissection continued in superior, medial, lateral, and inferior direction down to the chest wall, removing the underlying breast tissue. This was then reflected off the pectoralis major muscle. At that point, no further problems were noted. The incision was closed with 3-0 and 4-0 Vicryl stitches deep and a 5- 0 Vicryl subcuticular stitch. Steri-Strips were applied, along with a pressure dressing, and the patient tolerated the procedure well. Mitchell Whitney MD /[id number]
== END 2019-02-02 08:50 | disposition home or self-care (01) | DRG 584 ==
LOC: JP.SDS 07:42 → JP.MS 11:05 → JP.SDS 01-31 07:32 → JP.MS 01-31 07:32
PROVIDERS: ADMIT Surgery; ATTEND Surgery
PROC: 0HBT0ZZ Excision of Right Breast, Open Approach (ICD-10-PCS; principal; 2019-01-30)
DX: N62 Hypertrophy of breast (principal); M47.12 Other spondylosis with myelopathy, cervical region; G47.00 Insomnia, unspecified; G89.29 Other chronic pain; M19.041 Primary osteoarthritis, right hand; M41.113 Juvenile idiopathic scoliosis, cervicothoracic region; G89.4 Chronic pain syndrome; F12.20 Cannabis dependence, uncomplicated; Z79.891 Long term (current) use of opiate analgesic; Z87.891 Personal history of nicotine dependence; Z79.899 Other long term (current) drug therapy; Z88.5 Allergy status to narcotic agent; Z88.8 Allergy status to other drugs, medicaments and biological substances; Z86.010 Personal history of colon polyps
CPT/HCPCS: 19304; 36415; 80053; 83735; 84100; 85027; A9270 ×9; J0690 ×3; J1100; J2405; J2704; J2710; J3010; J3490 ×2; J7042 ×2; 88305; 97161-GP